=== PATIENT | female | born 1945 | race Caucasian/White ===

== ENCOUNTER → 2017-10-13 | Outpatient (CLI) | payer OTHER ==
[~2017-10-13] MED LIST: ADVIL PO; ASA81BEC PO; ASPIRIN325; CALCIUM; CALCIUM PO; EXCEDRIN CAPLE1 EACH PO; FISHOIL PO; MULTIVITAMINS PO; VITAMIN D1000 UNI1; VITAMIN E400 UNIT PO; VITAMINC500; [UNRECOGNIZED DRUG - REMARK]
== END ==
LOC: RAD 00:26
DX: Z12.31 Encounter for screening mammogram for malignant neoplasm of breast (principal)

== ENCOUNTER → 2018-11-14 | Outpatient (CLI) | payer OTHER | LOC: RAD 10-17 13:32 | DX: Z12.31 Encounter for screening mammogram for malignant neoplasm of breast (principal) ==

== ENCOUNTER 2019-09-24 17:51 | Emergency (ER) | payer OTHER ==
[~2019-09-24] VITALS: Ht 165.1 cm; Wt 68.0 kg
--- NOTE | ~2019-09-24 | EKG ---
[facility] [place] [address] ELECTROCARDIOGRAM REPORT Name: SAURABH WANG Room #: PRE M.R.#: [id number] Admission: Attend Phys: Discharge: Date of : 49 Report #: [id number] THIS REPORT FOR: cc: Cliff Carroll MD, Rene P. MD Epiphany, Epiphany MD ~ THIS REPORT FOR: //name// [facility] ED Test Date: 2019-09-24 Test Time: 18:39:03 Pat Name: SAURABH WANG Department: Room: Gender: F Campaign Specialist: MORAIMA : 1945 Requested By: Manish Barry Order Number: [id number] MD: Measurements Intervals [place] Rate: 72 P: 26 OK: 210 QRS: -22 QRSD: 97 T: 26 QT: 424 QTc: 465 Interpretive Statements Sinus rhythm Probable left atrial enlargement Borderline left axis deviation Baseline wander in lead(s) V2 No previous ECG available for comparison [email or web address] By: 1839 1839 Epiphany Epiphany, /EPI
[2019-09-24 19:09] LABS: ABSOLUTE NEUTROPHILS 3.2 thou/uL (1.4-8.2); BASOPHILS 0.5 % (0.0-2.0); EOSINOPHILS 1.1 % (0.0-3.0); HEMATOCRIT 38.4 % (37.0-47.0); HEMOGLOBIN 12.6 gm/dL (12.0-15.0); LYMPHOCYTES 13.4 % (24.0-44.0); MCH 30.3 pg (26.0-34.0); MCHC 32.8 g/dL (28.0-37.0); MCV 92.6 fL (80.0-100.0); MONOCYTES 5.8 % (1.0-8.0); PLATELET COUNT 258 thou/uL (150-400); POLYS 79.2 % (36.0-66.0); RBC 4.15 mil/uL (4.20-5.00); RDW 14.3 % (10.5-14.5); WBC 4.1 thou/uL (4.0-11.0)
[2019-09-24 19:20] LABS: ANION GAP 7 mmol/L (7-16); BUN 26 mg/dL (7-18); CALCIUM 8.1 mg/dL (8.5-10.1); CHLORIDE 104 mmol/L (98-107); CO2 28 mmol/L (21-32); CREATININE 0.7 mg/dL (0.6-1.0); GLUCOSE 109 mg/dL (74-106); POTASSIUM 3.1 mmol/L (3.5-5.1); SODIUM 139 mmol/L (136-145)
[2019-09-24 19:30] LABS: ALBUMIN 3.2 g/dL (3.4-5.0); LIPASE 64 U/L (73-393); SGOT 20 U/L (15-37); SGPT 20 U/L (30-65); TOTAL BILIRUBIN 0.5 mg/dL (<0.1-1.0); TOTAL PROTEIN 6.5 g/dL (6.4-8.2); TROPONIN-I <0.06 ng/mL (<0.06)
[2019-09-24] MEDS ORDERED: PEPCID20 MG PO (19:48)
[2019-09-24] MEDS ORDERED: ONDANSETRON ODT8 MG PO (19:48)
[2019-09-24 20:19] VITALS: BP 154/72
== END 2019-09-24 20:20 | disposition home or self-care (01) ==
LOC: ER 17:51
PROVIDERS: Emergency Medicine
DX: E87.6 Hypokalemia (principal); R11.2 Nausea with vomiting, unspecified; Z90.49 Acquired absence of other specified parts of digestive tract

== ENCOUNTER → 2020-01-07 | Outpatient (CLI) | payer OTHER ==
[~2020-01-07] MED LIST changes: +ONDANSETRON ODT8 MG PO; +PEPCID20 MG PO
== END ==
LOC: RAD 11-08 09:46
DX: Z12.31 Encounter for screening mammogram for malignant neoplasm of breast (principal)

== ENCOUNTER → 2021-01-07 | Outpatient (CLI) | payer OTHER | LOC: RAD 13:32 | PROVIDERS: ATTEND Obstetrics & Gynecology | DX: Z12.31 Encounter for screening mammogram for malignant neoplasm of breast (principal) ==